=== PATIENT | male | born 1960 | race Caucasian/White ===

== ENCOUNTER 2020-05-10 18:09 | Emergency (ER) | payer BC, SELFPAY ==
[~2020-05-10] VITALS: Ht 152.4 cm; Wt 74.8 kg
[2020-05-10 18:12] VITALS: Ht 152.4 cm; Wt 74.8 kg
[2020-05-10 18:47] VITALS: BP 182/92
== END 2020-05-10 18:47 | disposition home or self-care (01) ==
LOC: ED 18:09
DX: U07.1 COVID-19 (principal); I10 Essential (primary) hypertension
CPT/HCPCS: U0003

== ENCOUNTER 2020-05-12 09:58 | Inpatient (IN) | payer BC, SELFPAY ==
[~2020-05-12] VITALS: Ht 172.7 cm; Wt 86.2 kg
[2020-05-12 10:00] VITALS: Ht 172.7 cm; Wt 86.2 kg
[2020-05-12 11:28] LABS: CALCIUM 8.4 mg/dL (8.5-10.1); CHLORIDE SERUM 100 mmol/L (98-107); CREATININE SERUM 1.1 mg/dL (0.7-1.3); GFR1 > 60 mL/min; GLUCOSE SERUM 139 mg/dL (74-106); POTASSIUM SERUM 4.4 mmol/L (3.5-5.1); SODIUM SERUM 135 mmol/L (136-145)
[2020-05-12 11:33] LABS: ALKALINE PHOSPHATASE 68 U/L (46-116); ALT/SGPT 35 U/L (16-63); AST/SGOT 21 U/L (15-37); BILIRUBIN TOTAL 0.54 mg/dL (0.20-1.00); C REACTIVE PROTEIN 6.1 mg/dL (<=0.9); LACTIC DEHYDROGENASE (LDH) 217 U/L (100-190); TOTAL PROTEIN, SERUM 7.6 g/dL (6.4-8.2)
[2020-05-12 11:44] LABS: PLATELET COUNT 355 x10^3mcL (130-400); RED CELL DISTRIBUTION WIDTH 13.9 % (11.5-14.5)
[2020-05-12 11:55] LABS: BASOPHIL % 0 % (0-2)
[2020-05-12 12:48] LABS: microscopic required? YES; urine erythrocyte NEGATIVE (NEGATIVE)
[2020-05-12] MEDS ORDERED: ZESTRIL20 MG PO (15:23)
[2020-05-12] MEDS ORDERED: COREG12.5 MG PO (15:23)
[2020-05-12] MEDS ORDERED: AMLODIPINE BESYL5 M2 PO (15:23)
[2020-05-12] MEDS ORDERED: ATORVASTATIN CA20 M1 PO (15:24)
[2020-05-12] MEDS ORDERED: TYLENOL PO (15:24)
[2020-05-12 15:37] LABS: AMPHETAMINE QUAL UR NONE DETECTED (See below)
[2020-05-12 16:44] VITALS: BP 142/84
[2020-05-12 17:07] VITALS: BP 142/84
[2020-05-12 21:25] VITALS: BP 150/78
[2020-05-13 05:59] VITALS: BP 150/78
[2020-05-13 07:42] LABS: CALCIUM 9.1 mg/dL (8.5-10.1); CARBON DIOXIDE 24.7 mmol/L (21-32); CHLORIDE SERUM 102 mmol/L (98-107); CREATININE SERUM 0.8 mg/dL (0.7-1.3); GFR1 > 60 mL/min; GLUCOSE SERUM 131 mg/dL (74-106); POTASSIUM SERUM 4.5 mmol/L (3.5-5.1); SODIUM SERUM 138 mmol/L (136-145)
[2020-05-13 08:10] LABS: PLATELET COUNT 378 x10^3mcL (130-400); RED CELL DISTRIBUTION WIDTH 13.9 % (11.5-14.5)
[2020-05-13 08:13] LABS: BASOPHIL % 0 % (0-2)
[2020-05-13 08:42] VITALS: BP 163/78
[2020-05-13 09:30] VITALS: BP 158/78
[2020-05-13 12:24] VITALS: BP 143/84
[2020-05-13 12:54] VITALS: BP 158/78
[2020-05-13] MEDS ORDERED: MEDROL DOSEPAK4 MG PO (13:13)
== END 2020-05-13 17:04 | disposition home or self-care (01) | DRG 177 ==
LOC: ED 09:58 → DU 14:26
PROVIDERS: Emergency Medicine; ADMIT Family Medicine; ATTEND Family Medicine
DX: U07.1 COVID-19 (principal); J12.89 Other viral pneumonia; E87.3 Alkalosis; E46 Unspecified protein-calorie malnutrition; D68.59 Other primary thrombophilia; E11.9 Type 2 diabetes mellitus without complications; I10 Essential (primary) hypertension; I95.9 Hypotension, unspecified
CPT/HCPCS: 36600; 82962; 83880; 85378; 87804; 90658; G0378; J0456; J0696; J1100; J1644; J7030; J7050; J7060